=== PATIENT | female | born 1960 | race Two or more races ===

== ENCOUNTER 2019-08-21 12:07 | Emergency (ER) | payer OTHER ==
[~2019-08-21] VITALS: Ht 182.9 cm; Wt 99.8 kg
[2019-08-21] MEDS ORDERED: TENORMIN25 MG PO (12:36)
[2019-08-21] MEDS ORDERED: JENTADUETO XR1 EAC1 PO (12:37)
[2019-08-21] MEDS ORDERED: [UNRECOGNIZED DRUG - OTHER] PO (12:37)
[2019-08-21] MEDS ORDERED: LIPITOR40 M1 PO (12:38)
[2019-08-21] MEDS ORDERED: COZAAR25 MG PO (12:38)
== END 2019-08-21 18:54 | disposition home or self-care (01) ==
LOC: ER 12:07
DX: N20.1 Calculus of ureter (principal); K64.4 Residual hemorrhoidal skin tags